=== PATIENT | female | born 1965 | race Caucasian/White ===

== ENCOUNTER 2020-06-14 14:53 | Outpatient (REF) | payer BC, SELFPAY ==
--- NOTE | 2020-06-14 14:58 | MM_ITS ---
EXAMINATION: MM SCREENING DIGITAL BREAST TOMOSYNTHESIS, BILATERAL CLINICAL INFORMATION: Screening. Asymptomatic. The lifetime risk of breast cancer based on the Tyrer-Cuzick Model is 7%. COMPARISON: Mammography: 03/30/2019, 03/19/2018, 02/26/2017 TECHNIQUE: Digital breast tomosynthesis is performed in both the craniocaudal and mediolateral oblique views along with computer-aided detection (CAD). Synthesized 2D images are generated from the tomosynthesis. FINDINGS: There are scattered areas of fibroglandular density (ACR BI-RADS breast composition Category b). There are no significant masses, abnormal calcifications, or other abnormalities. There are 2 small dermal lesions overlying the left axilla right MLO view with punctate calcification versus artifact from deodorant or other topical ointment/powder. MM/MM tomosynthesis screening BI IMPRESSION: No mammographic evidence of malignancy. ASSESSMENT: BI-RADS 2: Benign RECOMMENDATION: Routine annual mammography screening. This patient's information was entered into a reminder system with a target due date for their next mammogram.
== END 2020-06-14 14:54 | disposition home or self-care (01) ==
LOC: HO.MAMMO 14:53
PROVIDERS: PCP Internal Medicine; Visit Provider Internal Medicine
DX: Z12.31 Encounter for screening mammogram for malignant neoplasm of breast (principal)
CPT/HCPCS: 77063; 77067

== ENCOUNTER 2021-06-27 09:49 | Outpatient (REF) | payer OTHER, SELFPAY ==
--- NOTE | ~2021-06-27 | MM_ITS ---
EXAMINATION: MM SCREENING DIGITAL BREAST TOMOSYNTHESIS, BILATERAL CLINICAL INFORMATION: Screening. Asymptomatic. The lifetime risk of breast cancer based on the Tyrer-Cuzick Model is 5%. COMPARISON: Mammography: June 14, 2020 and studies dating back to January 02, 2014 TECHNIQUE: Digital breast tomosynthesis is performed in both the craniocaudal and mediolateral oblique views along with computer-aided detection (CAD). Synthesized 2D images are generated from the tomosynthesis. FINDINGS: There are scattered areas of fibroglandular density (ACR BI-RADS breast composition Category b). There are no significant masses, abnormal calcifications, or other abnormalities. MM/MM tomosynthesis screening BI IMPRESSION: There are no significant changes from prior study. ASSESSMENT: BI-RADS 1: Negative RECOMMENDATION: Routine annual mammography screening. This patient's information was entered into a reminder system with a target due date for their next mammogram.
== END 2021-06-27 09:50 | disposition home or self-care (01) ==
LOC: HO.MAMMO 09:49
PROVIDERS: Visit Provider Internal Medicine
DX: Z12.31 Encounter for screening mammogram for malignant neoplasm of breast (principal)
CPT/HCPCS: 77063; 77067

== ENCOUNTER 2022-07-01 08:14 | Outpatient (REF) | payer OTHER, SELFPAY ==
--- NOTE | ~2022-07-01 | MM_ITS ---
EXAMINATION: MM SCREENING DIGITAL BREAST TOMOSYNTHESIS, BILATERAL CLINICAL INFORMATION: Screening. Asymptomatic. The lifetime risk of breast cancer based on the Tyrer-Cuzick Model is 5%. COMPARISON: Mammography: 06/27/2021, 06/14/2020, 03/30/2019; left breast ultrasound 04/04/2019 TECHNIQUE: Digital breast tomosynthesis is performed in both the craniocaudal and mediolateral oblique views along with computer-aided detection (CAD). Synthesized 2D images are generated from the tomosynthesis. FINDINGS: There are scattered areas of fibroglandular density (ACR BI-RADS breast composition Category b). There are no significant masses, abnormal calcifications, or other abnormalities. Parenchymal pattern is similar to prior studies. There is no developing density or architectural abnormality. The axilla and skin contours are unremarkable. No significant changes. MM/MM tomosynthesis screening BI IMPRESSION: No mammographic evidence of malignancy. ASSESSMENT: BI-RADS 1: Negative RECOMMENDATION: Routine annual mammography screening. This patient's information was entered into a reminder system with a target due date for their next mammogram.
== END 2022-07-01 08:15 | disposition home or self-care (01) ==
LOC: HO.MAMMO 08:14
PROVIDERS: PCP Internal Medicine; Visit Provider Internal Medicine
DX: Z12.31 Encounter for screening mammogram for malignant neoplasm of breast (principal)
CPT/HCPCS: 77063; 77067

== ENCOUNTER 2023-01-21 09:13 | Outpatient (AMB) | payer OTHER, SELFPAY ==
--- NOTE | 2023-01-21 09:20 | MHC.OFFVIS ---
Intake Vital Signs 01/21/23 09:22 Height 5 ft 7 in Weight 134 lb BMI 21.0 BP 98/60 Intake Visit Reasons: new patient ? prolapse Boiler Room Operator Required: No Information Interpreted: non-clinical & clinical Associate Store Leader: Associate Store Leader Present (Fatimah BERNSTEIN) Accompanied by: Self / Same As Patient Allergies No Known Allergies [No Known Allergies*] Allergy (Unverified 01/21/23 09:23) Post menopausal: Yes HPI HPI Comments History of Present Illness Details Presenting complaining of a bulge per vagina no associated urinary incontinence . PFSH Medical History Multiple sclerosis Surgical History History of total vaginal hysterectomy (TVH) Social History Household Members: None Housing: House Alcohol intake: never Patient Tobacco Use Status: Former Tobacco user Current occupational status: employed Sexually active: No Sexual orientation: Straight/Heterosexual Gender identity: Female Review of Systems Const All systems reviewed & are unremarkable except as noted in HPI and below Card Reports as per HPI and Reports no additional complaints Resp Reports as per HPI and Reports no additional complaints GI Reports as per HPI and Reports no additional complaints Reports as per HPI Physical Exam Vital Signs: Last Vital Signs BP 98/60 01/21/23 09:22 BMI result Body Mass Index 21.0 Const General: cooperative, healthy appearing and comfortable General: Yes other (Moderate to severe cystocele central and bilateral paravaginal defects) External Female Exam: No lesion Speculum Exam - Vagina: normal appearance of the vagina and other (Moderate to severe rectocele) Speculum Exam - Cervix: Cervix absent Bimanual exam- vagina & uterus: uterus absent Bimanual Exam- Adnexa, other: Other (No masses detected) Assessment & Plan Assessment & Plan (1) Cystocele with rectocele: Code(s): N81.10 - Cystocele, unspecified; N81.6 - Rectocele Plan: Discussed with the patient the finding on physical exam showing moderate to severe cystocele and rectocele, options of treatment including pessary is or surgical management. All pros and cons, risks and benefits of each were discussed with the patient, the patient decided to proceed with surgical management. Will refer to Urogynecology at [facility] Orders: Referrals Urogynecology Referral N81.10 - Cystocele, unspecified, N81.6 - Rectocele Coding Level of Care Code New Pt Level 3 (91623) Diagnoses Cystocele with rectocele N81.10; N81.6
[2023-01-21 09:22] VITALS: BP 98/60; BMI 21.0
== END 2023-01-21 11:05 | disposition home or self-care (01) ==
LOC: HO.HWS 09:13
PROVIDERS: PCP Internal Medicine; Visit Provider Obstetrics & Gynecology
DX: N81.10 Cystocele, unspecified (principal); N81.6 Rectocele
CPT/HCPCS: 99203

== ENCOUNTER → 2023-01-21 09:13 | Outpatient (BNVA) | payer OTHER, SELFPAY | PROVIDERS: PCP Internal Medicine; Visit Provider Obstetrics & Gynecology | DX: N81.10 Cystocele, unspecified (principal); N81.6 Rectocele | CPT/HCPCS: 99202 ==

== ENCOUNTER 2023-07-07 08:15 | Outpatient (REF) | payer OTHER, SELFPAY | END 2023-07-07 08:16 | disposition home or self-care (01) | LOC: HO.MAMMO 08:15 | PROVIDERS: PCP Internal Medicine; Visit Provider Internal Medicine | DX: Z12.31 Encounter for screening mammogram for malignant neoplasm of breast (principal) | CPT/HCPCS: 77063; 77067 ==

== ENCOUNTER → 2023-07-07 08:30 | Outpatient (BNV) | payer OTHER, SELFPAY | PROVIDERS: PCP Internal Medicine; Visit Provider Radiology Diagnostic Radiology | DX: Z12.31 Encounter for screening mammogram for malignant neoplasm of breast (principal) | CPT/HCPCS: 77063; 77067 ==

== ENCOUNTER 2024-07-11 14:02 | Outpatient (REF) | payer OTHER, SELFPAY ==
--- OUTSIDE RECORDS SUMMARY | 2024-07-11 18:32 | XMS_ITS | Encounter Summary ---
Author Organization [facility] [place] [address] Care Team Providers Care Parks And Recreation Manager Name Role Phone Maria Isabel Verdin MD Primary Care Provider [phone] Encounter Details Date Type Department Care Team (Latest Contact Info) Description 06/22/2024 9:15 AM EST Clinical Support Adult [address] [phone] B12 deficiency (Primary Dx) Social History Tobacco Use Types Packs/Day Years Used Date Smoking Tobacco: Former Smokeless Tobacco: Never Alcohol Use Standard Drinks/Week Comments No 0 (1 standard drink = 0.6 oz pur e alcohol) Housing Instability Answer Date Recorde d Are you worried that in the next 2 months you may not have stable housing? No 05/05/2024 Food Access & Nutrition Answer Date Rec orded Do you have access to a vari ety of food including fruits and vegetables? Yes 05/05/2024 Health Literacy Answer Date Recorded How often do you need to hav e someone help you when you read instructions, pamphlets, or other written material from your doctor or pharmacy? Never 05/05/2024 Caregiver: How often do you need to have someone help you when you read instructions, pamphlets, or other written material from your doctor or pharmacy? Not on file 05/05/2024 Financial Risk Answer Date Recorded How hard is it for you to pa y for the very basics like food, housing, medical care, and air conditioning / heating? Not asked 05/05/2024 Transportation Answer Date Recorded Has the lack of transportati on kept you from meetings, work, or from getting things needed for daily living? No Has the lack of transportati on kept you from medical appointments or from getting medications? No 05/05/2024 Social Isolation Answer Date Recorded How often do you feel lonely or isolated from th ose around you? Never 05/05/2024 Food Risk Answer Date Recorded Within the past 12 months we worried whether our food would run out before we got money to buy more. Never true 05/05/2024 Within the past 12 months th e food we bought just didn't last and we didn't have money to get more. Never true 05/05/2024 Dependent Care Answer Date Recorded Do you need help finding or paying for care for your loved ones. For example, childcare director or elderly care for an older adult? No 05/05/2024 Education Answer Date Recorded Do you think completing more education or training, like finishing a GED, going to college, or learning a trade, would be helpful for you? No 05/05/2024 Employment and Income Answer Date Recor ded During the last four weeks, have you been actively looking for work? No 05/05/2024 Living Situation Answer Date Recorded What is your living situation? 1 07/05/2023 Sex and Gender Information Value Date Recorded Sex Assigned at Not on file Gender Identity Not on file Sexual Orientation Not on file Job Start Date Occupation Industry Not on file Not on file Not on file documented as of this encounter Progress Notes * Lorenza Hwang MA - 06/22/2024 9:15 AM EST B12 injection given left deltoid. See medication/immunization tab. Patient to remain 20 minutes. documented in this encounter Plan of Treatment Upcoming Encounters Date Type Department Care Team (Late st Contact Info) Description 07/20/2024 9:00 AM EST Clinical Support Adult Medicine [address] [phone] 07/20/2024 11:00 AM EST Treatment Outpatient Rehabilitation - [address], [place] [phone] Joel Baca, PT 08/17/2024 9:00 AM EST Clinical Support [address] [phone] 09/14/2024 9:00 AM EDT Clinical Support [address] [phone] 10/12/2024 9:00 AM EDT Clinical Support [address] [phone] 11/09/2024 9:00 AM EDT Clinical Support [address] [phone] 11/17/2024 9:00 AM EDT Office Visit [address] [phone] Maria Isabel Verdin MD [address] [place] [address] 12/07/2024 9:00 AM EDT Clinical Support [address] [phone] documented as of this encounter Visit Diagnoses Diagnosis B12 deficiency- Primary documented in this encounter Administered Medications Active Administered Medications - up to 3 most recent administrations Medication Order MAR Action Action Date Dose Rate Site cyanocobalamin (VITAMIN B-12) injection 1,000 mcg 1,000 mcg, intramuscular, Every 30 days, First dose on Thu05/06/24 at 1215, For 6 doses Given 06/22/2024 9:04 AM EST 1,000 mcg Left Deltoid Given 05/11/2024 8:56 AM EST 1,000 mcg Le ft Deltoid documented in this encounter Additional Health Concerns Assessment Noted Time PHQ-9 Depression Total Score: 0 05/05/20 9:53 AM EST documented as of this encounter Care Teams Parks And Recreation Manager Relationship Specialty Start Date End Date Maria Isabel Verdin MD [address] [place] [address] PCP - General Internal Medicine 05/02/21 documented as of this encounter
--- OUTSIDE RECORDS SUMMARY | 2024-07-11 18:32 | XMS_ITS | Clinical Summary ---
Author Organization [facility] Address [address] [place] [address] Care Team Providers Care Customer Service Trainer Name Role Phone Maria Isabel Verdin MD Primary Care Provider [phone] Allergies No known active allergies Medications Medication Sig Dispensed Refills Start Date End Date Status folic acid (FOLVITE) tablet 1 mg Take 1 tablet (1,000 mcg total) by mouth daily. 3 03/13/2019 Active cyanocobalamin (VITAMIN B12) 1000 MCG/ML injection Inject 1 mL (1,000 mcg total) into the muscle. 0 08/10/2018 Active vitamin D3 (VITAMIN D3) 25 MCG (1000 UT) tablet Take 1 tablet (1,000 Units total) by mouth 3 (three) times a day. 0 Active LORazepam (ATIVAN) 0.5 MG tablet 1 po 1 hour prior to MRI; may repeat 1 at time of MRI if needed 10 tablet 0 07/29/2023 Active Dimethyl Fumarate (Tecfidera) 240 MG CPDRIndications:Mult iple sclerosis (HCC) Take 1 capsule by mouth 2 (two) times a day. 180 capsule 3 08/19/2023 Active Active Problems Problem Noted Date Diagnosed Date B12 deficiency 10/26/2019 Family History Medical History Relation Name Comments Multiple sclerosis Daughter Stroke Father Diabetes Mother Relation Name Status Comments Daughter Alive Father Mother Social History Tobacco Use Types Packs/Day Years Used Date Smoking Tobacco: Former Smokeless Tobacco: Never Tobacco Cessation:Counseling Given: Not Answered Alcohol Use Standard Drinks/Week Comments Yes 0 (1 standard drink = 0.6 oz pur e alcohol) Sex and Gender Information Value Date Recorded Sex Assigned at Female 05/23/2021 9:39 AM EST Gender Identity Not on file Sexual Orientation Not on file Job Start Date Occupation Industry Not on file Not on file Not on file Last Filed Vital Signs Vital Sign Reading Time Taken Comments Blood Pressure 101/58 12/31/2023 8:43 AM EDT Pulse 78 12/31/2023 8:43 AM EDT Temperature 35.9 ??C (96.6 ??F) 08/20/2023 8:37 AM ES T Respiratory Rate 16 08/19/2022 9:27 AM EST Oxygen Saturation 98% 12/31/2023 8:43 AM EDT Inhaled Oxygen Concentration - - Weight 58.9 kg (129 lb 14.4 oz) 12/31/2023 8:43 AM EDT Height 170.2 cm (5' 7 ) 08/20/2023 8:37 AM EST Body Mass Index 20.35 08/20/2023 8:37 AM EST Plan of Treatment Health Maintenance Due Date Last Done Comments Hepatitis C Screening 1965 COVID-19 Vaccine (#1) 1965 Depression Screening 1975 Preventative Health Evaluation 1981 Cervical Cancer Screening (Pap Smear) 1984 Colon Cancer Screening (Colonoscopy) 2008 Breast Cancer Screening (Mammogram) 2013 Influenza Vaccine (#1) 2024 2, 04/01/2021, 02/22/2021, Additional history exists DTap / Tdap / Td (3 - Td or Tdap) 08/16/2030 08/16/2020, 03/29/2012 RSV Adult > 60+ Yrs or (1 - 1-dose 75+ series) 2038 Pneumococcal Vaccine Aged Out 11/20/2016, 07/31/19 16 No longer eligible based on patient's age to complete this topic Shingrix-Zoster Vaccine Completed 05/14/20 19, 03/17/2019, 01/27/2018, Additional history exists Hepatitis B Vaccines Aged Out No long er eligible based on patient's age to complete this topic RSV Ped < 20 months Aged Out No longe r eligible based on patient's age to complete this topic Care Teams Customer Service Trainer Relationship Specialty Start Date End Date Maria Isabel Verdin MD PCP - General Internal Medicine 02/18/22
--- OUTSIDE RECORDS SUMMARY | 2024-07-11 18:32 | XMS_ITS | Encounter Summary ---
Author Organization [facility] Address [address] [place] [address] Care Team Providers Care Strain Technician Name Role Phone Maria Isabel Verdin MD Primary Care Provider Reason for Visit * Consultation (Routine) - Authorized Specialty Diagnoses / Procedures Referred By Deana solis Referred To Contact Physical Therapy Diagnoses Weakness of both lower extremities Taylor De León MD [address] [place] [address] Referral ID Status Reason Start Date Expiration Date Visits Requested Visits Authorized [id number] Authorized Specialty Services Required 06/01/2025 21 21 Encounter Details Date Type Department Care Team (Latest Contact Info) Description 06/30/2024 2:30 PM EST Evaluation Outpatient Rehabilitation - [address] [phone] Joel Baca, JOSÉ MANUEL Weakness of both lower extremities (Primary Dx) Social History Tobacco Use Types [...] for your loved ones. For example, childcare teacher or elderly care for an older adult? [...] as of this encounter Progress Notes * Joel Baca, PT - 06/30/2024 2:30 PM EST Images from the original note were not included. [facility] - Outpatient PHYSICAL THERAPY EVALUATION Date: 06/30/2024 Visit Number: 1 Patient Name: Rosa Thayer : 1965 Age: 59 y.o. Gender: female Diagnosis: ICD-10-CM ICD-9-CM 1. Weakness of both lower extremities R29.898 729.89 Ambulatory referral to Physical Therapy and Athletic Training Date of Onset/Surgery: 05/30/2024 Referring Provider: Taylor De León* Insurance: Payor: [employer] / Plan: [employer]ICA[employer] / Product Type: *No Product type* / Patient identified by: Joel Baca PT Language: Speaks and understands Persian as preferred language with no sas clinical programmer required Chart Reviewed: Yes Medications: Current Outpatient Medications on File Prior to Visit Medication Sig Dispense Refill cholecalciferol (VITAMIN D-3) 25 mcg (1,000 unit) tablet Take 1 tablet (1,000 Units total) by mouth3 (three) times a day. dimethyl fumarate 240 mg capsule,delayed release(DR/EC) Take 1 Tab by mouth 2 times daily. folic acid (FOLVITE) 1 mg tablet Take 1 tablet (1,000 mcg total) by mouth daily. LORazepam (ATIVAN) 0.5 mg tablet 1 po 1 hour prior to MRI; may repeat 1 at time of MRI if needed Current Facility-Administered Medications on File Prior to Visit Medication Dose Route Frequency Provider Last Rate Last Admin cyanocobalamin (VITAMIN B-12) injection 1,000 mcg 1,000 mcg intramuscular q30 days LEANNE Anaya1,000 mcg at 06/22/24 0904 Advised Patient to contact MD with any questions regarding medications and importance of managing medication information. has a past medical history of Anxiety (06/03/2018), Depression (06/03/2018), H/O uterine prolapse (06/03/2018), Mild cognitive impairment (06/03/2018), MS (multiple sclerosis) ([facility]) (06/03/2018),Pernicious anemia (06/03/2018), Tubular adenoma of colon (06/03/2018), and Vitamin D deficiency (06/03/2018). has a past surgical history that includes Colonoscopy (2014); Hysterectomy (09/23/2006); and Colonoscopy (01/12/2020). has No Known Allergies. Precautions: N/A Previous Medical Care/Therapy: Pt is followed at local [facility] as PMH includes MS (Dx'd in 1987). SUBJECTIVE History of Present Illness/Subjective Report: Pt reports falling in her kitchen at 3 o'clock in themorning on 05/30/2024. Pt stated on floor until help came out to get her up off floor. Pt reports no other episodes of collapse but was dx'd w/ COVID 19 three days later. Pt has not had any falls since that date. Pt was seen by PCP and given PT referral for PT evaluation. Home Environment: Resides w/ adult son and son's girlfriend, 2 yo and 1 yo grandchildren. 1 level ranch, W/D are in basement and 1/2 of basement is finished. 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 R hand dominant. Involves cahiering, stocking shelves etc. Prior Level of Function: Same as it is now. Current Functional Limitations: Reported by Patient No limitations at this time. Pt concerned that she requires use of UE's to get off floor. Is the patient at Risk for Falls: No Pain: Pain location(s) No pain. OBJECTIVE General Observations/Posture/Comments: Grossly WNL's. General/Functional Assessments/Extremity Assessments: Pt was able to transfer from floor to stand transfers w/ occ VC's. B LE strength is grossly WNL's except L hip abd=4-/5, R=4/5. L hip ER=4/5, R=4+/5. B PF's=4/5 (L HRT=5 reps, R=7 reps). Gait is WNL's. Transfers are WNL's. Pt has moderately tight quads and hamstrings. 30 Second Chair Stand Test= 10 reps (Norm is 12 or better) TU seconds. 4 Stage Balance Test: All 10 seconds or better. Pt instructed in supine HS stretch, prone quad stretch and heel raises at kitchen sink to include demo and trial. Written instructions issued. Answered pt's questions to patient's satisfaction. ASSESSMENT: IE completed this visit. Rehabilitation Potential: Rehab Potential: Condition Has Potential to Improve Rosa Thayer is a 59 y.o. female presenting for outpatient physical therapy evaluation with complaints of B LE weakness and no HEP at this time. A brief course of skilled Physical therapy is medically necessary to reach PT goals and LE flexibility and strength. Learning Needs: Were Patient Learning needs assessed: Yes Learning Preferences: Explanation and Printed Materials Barriers to Learning: No Barriers to Learning Patient Education: [x] Discussed, with patient and/or caregiver, the recommended plan of care/goals, the importance oftherapy and appointment compliance in order to achieve goals in a timely manner. GOALS Goals Addressed This Visit's Progress STG's 4 visits (pt-stated) Pt will be I and compliant w/ functional LE strengthening program. Pt will demonstrate 14 reps or better on 30 Second Chair Stand Test. PLAN POC Development/Review: Initial Evaluation; Participants: Patient Skilled Therapy Plan Required: YES- Reasons for Rehab and Medical Necessity -- Additional Comments:To instruct pt is a HEP of LE strengthening and stretching. Planned Therapy Interventions: Neuromuscular Re-education, Therapeutic Activity, and Therapeutic Exercise Skilled PT recommended at a freq of 1x/week for up to 4 visits. Recommended Consults: none Equipment Recommended: none; Equipment Provided: none BILLING TOTAL TREATMENT TIME: 60 Minutes Evaluation Medium Complexity Justification ::: A history of present problem with 1 - 2 personal factors and/or co-morbidities that impact the plan of care and An examination of body systems using standardized tests and measures in addressing a total of 3 or more elements from any of the following body structures and functions, activity limitations, and/or participation restrictions Documentation completed by Joel Baca, [facility] [address] [address] Dept: [phone] Dept PATIENT NAME: Rosa Thayer : 1965 Certification: This is to certify that the above named patient, who is under my care, requires skilled Therapy services as described in the above treatment plan. I further certify that the services outlined in this plan are skilled and medically necessary. I have reviewed this plan for rehabilitation services, and I recommend that these services continue to meet the above stated goals and plan. SIGNATURE: DATE Taylor De León* Referring provider documented in this encounter Plan of Treatment Upcoming Encounters Date Type Department Care Team (Late st Contact Info) Description 07/20/2024 9:00 AM EST Clinical Support [address] [phone] 07/20/2024 11:00 AM EST Treatment Outpatient [address] [phone] Joel Baca, PT 08/17/2024 9:00 AM EST Clinical Support [address] [phone] 09/14/2024 9:00 AM EDT Clinical Support [address] [phone] 10/12/2024 9:00 AM EDT Clinical Support [address] [phone] 11/09/2024 9:00 AM EDT Clinical Support [address] [phone] 11/17/2024 9:00 AM EDT Office Visit [address] [phone] Maria Isabel Verdin MD [address] [place] [address] 12/07/2024 9:00 AM EDT Clinical Support [address] [phone] documented as of this encounter Goals Goal Patient Goal Type Associated Problems Recent Progress Patient-Stated? Author STG's 4 visits General Yes Joel Baca, PT Note: Pt will be I and compliant w/ functional LE strengthening program. Pt will demonstrate 14 reps or better on 30 Second Chair Stand Test. documented as of this encounter Visit Diagnoses Diagnosis Weakness of both lower extremities- Primary documented in this encounter Orders Outpatient Referral Count Last Ordered Date Fir st Ordered Date AMB REFERRAL TO PHYSICAL [facility] AND ATHLETIC TRAINING 1 06/30/2024 documented in this encounter Additional Health Concerns Assessment Noted Time PHQ-9 Depression Total Score: 0 05/05/20 24 9:53 AM EST documented as of this encounter Care Teams Strain Technician Relationship Specialty Start Date End Date Maria Isabel Verdin MD [address] [place] [address] PCP - General Internal Medicine 05/02/21 documented as of this encounter
--- OUTSIDE RECORDS SUMMARY | 2024-07-11 18:32 | XMS_ITS | Encounter Summary ---
Author Organization [facility] Address [address] [place] [address] Care Team Providers Care Candy Separator Enrobing Name Role Phone Maria Isabel Verdin MD Primary Care Provider [phone] Encounter Details Date Type Department Care Team (Latest Contact Info) Description 06/30/2024 Plan of Care Documentation [address] [address] Social History Tobacco Use Types Packs/Day Years [...] care for your loved ones. For example, child care associate teacher or elderly care for an older [...] Notes * Joel Baca, PT - 06/30/2024 3:52 PM EST Images from the original note were not included. [facility] - Outpatient PHYSICAL THERAPY EVALUATION Date: 06/30/2024 Visit Number: 1 Patient Name: Rosa Thayer : 1965 Age: 59 y.o. Gender: female Diagnosis: ICD-10-CM ICD-9-CM 1. Weakness of both lower extremities R29.898 729.89 Ambulatory referral to Physical Therapy and Athletic Training Date of Onset/Surgery: 05/30/2024 Referring Provider: Taylor De León* Insurance: Payor: [employer] PLAN / Plan: [employer] MEDICAID / Product Type: *No Product type* / Patient identified by: Joel Baca PT Language: Speaks and understands Togolese as preferred language with no clinic receptionist required Chart Reviewed: Yes Medications: Current Outpatient [...] 1,000 mcg 1,000 mcg intramuscular q30 days Kandy Cook PA1,000 mcg at 06/22/24 0904 Advised Patient to contact MD with any questions regarding medications and importance of managing medication information. has a past medical history of Anxiety (06/03/2018), Depression (06/03/2018), H/O uterine prolapse (06/03/2018), Mild cognitive impairment (06/03/2018), MS (multiple sclerosis) ([facility]) (06/03/2018),Pernicious anemia (06/03/2018), Tubular adenoma of colon [...] basement and 1/2 of basement is finished. 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 R hand dominant. Involves [...] and/or participation restrictions Documentation completed by Joel Baca PT OUTPATIENT [address] [address] Dept: [phone] Dept PATIENT NAME: Rosa Thayer : 1965 [...] 07/20/2024 9:00 AM EST Clinical Support Adult [address] [phone] 07/20/2024 11:00 AM EST Treatment Outpatient Rehabilitation [address] [phone] Joel Baca, JOSÉ MANUEL 08/17/2024 9:00 AM EST Clinical Support [address] [phone] 09/14/2024 9:00 AM EDT Clinical Support [address] [phone] 10/12/2024 9:00 AM EDT Clinical Support [address] [phone] 11/09/2024 9:00 AM EDT Clinical Support [address] [phone] 11/17/2024 9:00 AM EDT Office Visit [address] [phone] Maria Isabel Verdin MD [address] [place] [address] 12/07/2024 9:00 AM EDT Clinical Support [address] [phone] documented as of this encounter Goals Goal Patient Goal Type Associated Problems Recent Progress Patient-Stated? Author STG's 4 visits General Yes Joel Baca, PT Note: Pt will be I and compliant w/ functional LE strengthening program. Pt will demonstrate 14 reps or better on 30 Second Chair Stand Test. documented as of this encounter Visit Diagnoses Not on filedocumented in this encounter Additional Health Concerns Assessment Noted Time PHQ-9 Depression Total Score: 0 05/05/20 24 9:53 AM EST documented as of this encounter Care Teams Candy Separator Enrobing Relationship Specialty Start Date End Date Maria Isabel Verdin MD [address] [place] [address] PCP - General Internal Medicine 05/02/21 documented as of this encounter
--- OUTSIDE RECORDS SUMMARY | 2024-07-11 18:32 | XMS_ITS | Encounter Summary ---
Author Organization [facility] Address [address] [place] [address] Care Team Providers Care Grapple Skidder Operator Name Role Phone Maria Isabel Verdin MD Primary Care Provider [phone] Reason for Visit * Consultation (Routine) - Authorized Specialty Diagnoses / Procedures Referred By Deana solis Referred To Contact Physical Therapy Diagnoses Weakness of both lower extremities Taylor De León MD [address] [place] [address] Referral ID Status Reason Start Date Expiration Date Visits Requested Visits Authorized [id number] Authorized Specialty Services Required 06/01/2025 21 21 Encounter Details Date Type Department Care Team (Late st Contact Info) Description 07/06/2024 9:30 AM EST Treatment Outpatient Rehabilitation [address] [phone] Joel Baca PT Weakness of both lower extremities (Primary Dx) [...] care for your loved ones. For example, childbirth and infant care teacher or elderly care for an older [...] Progress Notes * Joel Baca, PT - 07/06/2024 9:30 AM EST [facility] - Outpatient PHYSICAL THERAPY DAILY TREATMENT NOTE - OP Date: 07/06/2024 Visit Number: 2 Patient Name: Rosa Thayer : 1965 Age: 59 y.o. Gender: female Diagnosis: ICD-10-CM ICD-9-CM 1. Weakness of both lower extremities R29.898 729.89 Date of Onset/Surgery: 05/30/2024 Referring Provider: Taylor De León* Insurance: Payor: [facility] Atieva PLAN / Plan: WE[employer] MEDICAID / Product Type: *No Product type* / Patient Identified by: Joel Baca PT Language: Kyrgyz Medications: Current Outpatient Medications on File Prior [...] days LEANNE Anaya1,000 mcg at 06/22/24 0904 Allergies: has No Known Allergies. Precautions: N/A Fall risk: No Patient/Caregiver Goals: SUBJECTIVE Subjective Report: Pt felt a pull in her ribs when doing prone quad stretch w/ dog leash so modified via pulling pant leg and this felt better. Chart Reviewed: Yes Pain OBJECTIVE TREATMENT INTERVENTION: Modalities: None performed Procedures: HEP review via return demonstration w/ pt's questions answered to pt's satisfaction. Discussed use of recumbent cycle as pt has one at home. Discussed starting point and how to progress gradually as well as use of resistance w/ RPE of 6-7/10 on VAS. Pt instructed in supine HS stretch w/ green strap as another alternative to previous stretches to include demo and trial. Also instructed in banded air squats Issued PTB for home use. Written instructions issued. ASSESSMENT/Response to Treatment Good Pt was able to return demonstration of new HEP after instruction. Pt would benefit from addition of banded side stepping and stool scoots next visit. Patient Education: Education provided: Yes Education Provided To: Patient utilizing Explanation, Demonstration, and Printed Material mode(s) of education Response to Education: Verbal Understanding and Demonstrated Skills PLAN POC Development/Review: No Change in the Plan of Care; Participants: Patient Total Treatment Time: 30 Modalities: Therapeutic procedures: Documentation completed by Joel Baca PT documented in this encounter Plan of Treatment Upcoming Encounters Date Type Department Care Team (Late st Contact Info) Description 07/20/2024 9:00 AM EST Clinical Support [address] [phone] 07/20/2024 11:00 AM EST Treatment Outpatient Rehabilitation [address] [phone] Joel Baca, PT 08/17/2024 9:00 AM EST Clinical Support [address] [phone] 09/14/2024 9:00 AM EDT Clinical Support [address] [phone] 10/12/2024 9:00 AM EDT Clinical Support [address] [phone] 11/09/2024 9:00 AM EDT Clinical Support [address] [phone] 11/17/2024 9:00 AM EDT Office Visit [address] [phone] Maria Isabel Verdin MD [address] [place] [address] 12/07/2024 9:00 AM EDT Clinical Support Adult Medicine [facility] [address] [place] [phone] documented as of this encounter Goals Goal [...] lower extremities- Primary documented in this encounter Additional Health Concerns Assessment Noted Time PHQ-9 Depression Total Score: 0 05/05/20 24 9:53 AM EST documented as of this encounter Care Teams Grapple Skidder Operator Relationship Specialty Start Date End Date Maria Isabel Verdin MD [address] [place] [address] PCP - General Internal Medicine 05/02/21 documented as of this encounter
--- OUTSIDE RECORDS SUMMARY | 2024-07-11 18:33 | XMS_ITS | Clinical Summary ---
Author Organization [facility] Address [address] [place] [address] Phone Care Team Providers Care Research Consultant Name Role Phone Maria Isabel Verdin MD Primary Care Provider [phone] Allergies No known active allergies Medications Medication Sig Dispensed Refills Start Date End Date Status dimethyl fumarate 240 mg capsule,delayed release(DR/EC) Take 1 Tab by mouth 2 times daily. 11/25/2019 Active folic acid (FOLVITE) 1 mg tablet Take 1 tablet (1,000 mcg total) by mouth daily. 03/13/2019 Active LORazepam (ATIVAN) 0.5 mg tablet 1 po 1 hour prior to MRI; may repeat 1 at time of MRI if needed 07/29/2023 Active cholecalciferol (VITAMIN D-3) 25 mcg (1,000 unit) tablet Take 1 tablet (1,000 Units total) by mouth 3 (three) times a day. Active Hospital, Clinic, or Other Facility Administered Medication Ordered Dose Route Frequency Start Date End Date Status cyanocobalamin (VITAMIN B-12) injection 1,000 mcgIndications:B12 deficiency,Pernicious anemia 1000 mcg IM Every 30 days 05/06/2024 11/02/2024 Active Active Problems Problem Noted Date Diagnosed Date B12 deficiency 10/26/2019 Encounters Date Type Department Care Team Description 07/06/2024 9:30 AM EST Treatment Outpatient Rehabilitation [address] [phone] Joel Baca, PT Weakness of both lower extremities (Primary Dx) 06/30/2024 2:30 PM EST Evaluation Outpatient Rehabilitation [address] [phone] Joel Baca, PT Weakness of both lower extremities (Primary Dx) 06/30/2024 Plan of Care Documentation [facility] Outpatient Rehabilitation [facility] [address] [facility] [address] [place] [address] 06/22/2024 9:15 AM EST Clinical Support [address] [phone] B12 deficiency (Primary Dx) 05/31/2024 2:30 PM EST Office Visit [address] [phone] Chad garg, Taylor Dong MD Weakness (Primary Dx) 05/30/2024 Nurse Triage [address] [phone] Maria Isabel Verdin MD Fall 05/11/2024 9:15 AM EST Clinical Support [address] [phone] B12 deficiency (Primary Dx) 05/06/[address] [phone] Maria Isabel Verdin MD 04/22/2024 8:30 AM EST Office Visit [facility] - [address] [place] [address] Samanta Cotto PA MS (multiple sclerosis) (CMS/[facility]) (Primary Dx) from Last 3 Months Surgical History Surgery Date Site/Laterality Comments COLONOSCOPY 2014 PROCEDURE: HISTORICAL COLONOSCOPY; COMMENT: 5 year repeat HYSTERECTOMY 09/23/2006 PROCEDURE: HISTORICAL HYSTERECTOMY; COMMENT: partial. due to prolapsed uterus COLONOSCOPY 01/12/2020 PROCEDURE: HISTORICAL COLONOSCOPY; COMMENT: repeat 2024 Medical History Medical History Date Comments Anxiety 06/03/2018 DX:Anxiety; COMM ENT: Panic attacks Depression 06/03/2018 DX:Depression H/O uterine prolapse 06/03/2018 DX:H/O uter ine prolapse; COMMENT: Partial hysterectomy 09/2006 Mild cognitive impairment 06/03/2018 DX:Mil d cognitive impairment; COMMENT: Neuropsych testing done 01/2016 MS (multiple sclerosis) ([facility]/H[facility]) 06/03/2018 DX:MS (multiple sclerosis) ([facility]); COMMENT: Dr Conn Vitamin D deficiency 06/03/2018 DX:Vitamin D deficiency Tubular adenoma of colon 06/03/2018 DX:Tubu lar adenoma of colon; COMMENT: 2014. Repeat in 5 years Pernicious anemia 06/03/2018 DX:Pernicious anemia Family History Medical History Relation Name Comments Multiple sclerosis Daughter Coronary artery disease Father Stro ke/ICH Diabetes Mother Stoke Other: Neuropathy Sister Relation Name Status Comments Daughter Alive Father Mother Sister Social History Tobacco Use Types Packs/Day Years Used Date Smoking Tobacco: Former Smokeless Tobacco: Never Tobacco Cessation:Counseling Given: Not Answered Alcohol Use Standard Drinks/Week Comments No 0 [...] file Not on file Not on file Obstetrics History Last Filed Vital Signs Vital Sign Reading Time Taken Comments Blood Pressure 110/72 05/31/2024 2:37 PM EST Pulse 94 05/31/2024 2:37 PM EST Temperature 36.4 ??C (97.5 ??F) 05/31/2024 2:37 PM ES T Respiratory Rate 14 05/31/2024 2:37 PM EST Oxygen Saturation 98% 04/22/2024 8:57 AM EST Inhaled Oxygen Concentration - - Weight 59.5 kg (131 lb 3.2 oz) 05/31/2024 2:37 P M EST Height 167.6 cm (5' 6 ) 04/22/2024 8:57 AM EST Body Mass Index 21.18 04/22/2024 8:57 AM EST Plan of Treatment Upcoming Encounters Date Type Department Care Team (Late st Contact Info) Description 07/20/2024 9:00 AM EST Clinical Support Adult Medicine [place] - [address] [phone] 07/20/2024 11:00 AM EST Treatment Outpatient Rehabilitation - [address] [phone] Joel Baca, PT 08/17/2024 9:00 AM EST Clinical Support [address] [phone] 09/14/2024 9:00 AM EDT Clinical Support [address] [phone] 10/12/2024 9:00 AM EDT Clinical Support [address] [phone] 11/09/2024 9:00 AM EDT Clinical Support [address] [phone] 11/17/2024 9:00 AM EDT Office Visit [address] [phone] Maria Isabel Verdin MD [address] [place] [address] 12/07/2024 9:00 AM EDT Clinical Support [address] [phone] Health Maintenance Due Date Last Done Comments Breast Cancer Screening 1965 Colorectal Cancer Screening: Colonoscopy 05/23/2022 HIV Screening 05/23/2022 Hepatitis C Screening 05/23/2022 Depression Screening 05/05/2025 05/05/2024 Social Influencers of Health Screening 05/05/2025 05/05/2024 Cholesterol Screening (Lipid Panel) 04/22/2029 04/22/2024, 11/12/2023 DTaP,Tdap,and Td Vaccines (3 - Td or Tdap) 08/16/2030 08/16/2020, 03/29/2012 Pneumococcal Vaccine: Pediatrics (0 to 5 Years) and At-Risk Patients (6 to 64 Years) Aged Out 11/20/2016, 07/31/2015 No longer eligibl e based on patient's age to complete this topic Zoster Vaccines Completed 05/14/2019, 08/2018, 01/27/2018, Additional history exists RSV Immunization Patients 60+ Years Old Completed 08/21/2023 COVID-19 Vaccine Completed 02/21/2024, , 06/07/2022, Additional history exists Influenza Vaccine Completed 02/21/2024, , 04/07/2022, Additional history exists HIB Vaccines Aged Out No longer eligi ble based on patient's age to complete this topic HPV Vaccines Aged Out No longer eligi ble based on patient's age to complete this topic Hepatitis A Vaccines Aged Out No long er eligible based on patient's age to complete this topic Hepatitis B Vaccines Aged Out No long er eligible based on patient's age to complete this topic IPV Vaccines Aged Out No longer eligi ble based on patient's age to complete this topic MMR Vaccines Aged Out No longer eligi ble based on patient's age to complete this topic Meningococcal ACWY Vaccine Aged Out N o longer eligible based on patient's age to complete this topic RSV Immunization Patients Under 20 months Aged Out No longer eligible based on patient's age to complete this topic Varicella Vaccines Aged Out No longer eligible based on patient's age to complete this topic Goals Goal Patient Goal Type Associated Problems Recent Progress Patient-Stated? Author STG's 4 visits General Yes Joel Baca, PT Note: Pt will be I and compliant w/ functional LE strengthening program. Pt will demonstrate 14 reps or better on 30 Second Chair Stand Test. Procedures Procedure Name Priority Date/Time Associated Diagnosis Comments BASIC METABOLIC PANEL Routine 05/31/2024 3:12 PM EST Weakness THYROID STIMULATING HORMONE WITH REFLEX TO FREE T4 AND FREE T3 Routine 05/31/2024 3:12 PM EST Weakness CBC WITH AUTO DIFFERENTIAL Routine 04/22/2024 9:03 AM EST MS (multiple sclerosis) (CMS/HCC) LIPID PANEL WITH REFLEX TO DIRECT LDL Routine 04/22/2024 9:03 AM EST Multiple sclerosis (CMS/HCC) VITAMIN B12 Routine 04/22/2024 9:03 AM EST MS (multiple sclerosis) (CMS/HCC) VITAMIN D 25 HYDROXY Routine 04/22/2024 9:03 AM EST MS (multiple sclerosis) (CMS/HCC) HEPATIC FUNCTION PANEL Routine 04/22/2024 9:03 AM EST MS (multiple sclerosis) (CMS/HCC) CBC AND DIFFERENTIAL Routine 04/22/2024 9:03 AM EST MS (multiple sclerosis) (CMS/HCC) from Last 3 Months Results * Thyroid stimulating hormone with reflex to free t4 and free t3 (05/31/2024 3:12 PM EST) [facility] TSH 3.83 0.40 - 4.00 mcIU/mL LAB CHEMISTRY METHOD 05/31/2024 6:21 PM [facility] Blood Venous blood specimen / Unknown Venipuncture / Unknown 05/31/2024 3:12 PM EST 05/31/2024 3:12 PM EST Taylor De León MD LAB BLOOD ORDERABLES [facility] [address] [place] [address], * (ABNORMAL) Basic metabolic panel (05/31/2024 3:12 PM EST) [facility] Sodium 135 133 - 145 mmol/L LAB CHEMISTRY METHOD 05/31/2024 6:10 PM EST [facility] Potassium 4.8 3.5 - 5.5 mmol/L LAB CHEMISTRY METHOD 05/31/2024 6:10 PM [facility] Chloride 99 96 - 110 mmol/L LAB CHEMISTRY METHOD 05/31/2024 6:10 PM [facility] CO2 33(H) 21 - 32 mmol/L LAB CHEMISTRY METHOD 05/31/2024 6:10 PM [facility] Anion Gap 3 3 - 11 LAB CHEMISTRY METHOD 05/31/2024 6:10 PM EST [facility] Glucose 79 70 - 100 mg/dL LAB CHEMISTRY METHOD 05/31/2024 6:10 PM [facility] BUN 10 5 - 25 mg/dL LAB CHEMISTRY METHOD 05/31/2024 6:10 PM [facility] Creatinine 0.66 0.50 - 1.10 mg/dL LAB CHEMISTRY METHOD 05/31/2024 6:10 PM [facility] eGFR 100 >=60 mL/min/1. 73m2 LAB CHEMISTRY METHOD 05/31/2024 6:10 PM [facility] Comment:Calculation based on the??Chronic Kidney Disease Epidemiology Collaboration (CKD-EPI) equation refit??without adjustment for race. BUN/Creatinine Ratio 15.2 LAB CHEMISTRY METHOD 05/31/2024 6:10 PM [facility] Calcium 8.8 8.5 - 10.5 mg/dL LAB CHEMISTRY METHOD 05/31/2024 6:10 PM [facility] Blood Venous blood specimen / Unknown Venipuncture / Unknown 05/31/2024 3:12 PM EST 05/31/2024 3:12 PM EST Taylor De León MD LAB BLOOD ORDERABLES [facility] [address] [place] [address], * Lipid panel with reflex to direct LDL (04/22/2024 9:03 AM EST) Cholesterol 177 0 - 200 mg/dL LAB CHEMISTRY METHOD 04/22/2024 10:56 AM EST [facility] Triglycerides 135 0 - 150 mg/dL LAB CHEMISTRY METHOD 04/22/2024 10:56 AM [facility] HDL 59 >=40 mg/dL LAB CHEMISTRY METHOD 04/22/2024 10:56 AM EST [facility] LDL Calculated 91 0 - 100 mg/dL LAB CHEMISTRY METHOD 04/22/2024 10:56 AM [facility] VLDL Cholesterol Sudarshan 27 mg/dL LAB CHEMISTRY METHOD 04/22/2024 10:56 AM [facility] Non HDL Chol. (LDL+VLDL) 118 <145 mg/dL LAB CHEMISTRY METHOD 04/22/2024 10:56 AM [facility] Chol/HDL Ratio 3.0 0.0 - 4.4 LAB CHEMISTRY METHOD 04/22/2024 10:56 AM [facility] Blood Venous blood specimen / Unknown Venipuncture / Unknown 04/22/2024 9:03 AM EST 04/22/2024 9:03 AM EST Samanta PERDOMO LAB BLOOD ORDERABLES [facility] [address] [place] [address], * (ABNORMAL) CBC auto differential (04/22/2024 9:03 AM EST) WBC 4.1(L) 4.8 - 10.8 K/mcL LAB HEMETOLOGY METHOD 04/22/2024 10:32 AM [facility] RBC 3.70(L) 3.80 - 4.80 M/[facility] LAB HEMETOLOGY METHOD 04/22/2024 10:32 AM [facility] Hemoglobin 11.5 11.5 - 16.0 g/dL LAB HEMETOLOGY METHOD 04/22/2024 10:32 AM [facility] Hematocrit 35.7 35.0 - 47.0 % LAB HEMETOLOGY METHOD 04/22/2024 10:32 AM [facility] MCV 96.5 79.0 - 98.0 FL LAB HEMETOLOGY METHOD 04/22/2024 10:32 AM [facility] MCH 31.1 27.0 - 32.0 pcg LAB HEMETOLOGY METHOD 04/22/2024 10:32 AM [facility] MCHC 32.2 32.0 - 37.0 g/dL LAB HEMETOLOGY METHOD 04/22/2024 10:32 AM [facility] RDW 12.5 11.0 - 15.0 % LAB HEMETOLOGY METHOD 04/22/2024 10:32 AM [facility] Platelets 280 130 - 400 K/mcL LAB HEMETOLOGY METHOD 04/22/2024 10:32 AM [facility] MPV 9.6 7.0 - 11.0 FL LAB HEMETOLOGY METHOD 04/22/2024 10:32 AM [facility] NRBC 0.0 <1.0 % LAB HEMETOLOGY METHOD 04/22/2024 10:32 AM [facility] NRBC Absolute 0.00 <0.10 K/mcL LAB HEMETOLOGY METHOD 04/22/2024 10:32 AM [facility] Neutrophils Relative 62.1 % LAB HEMETOLOGY METHOD 04/22/2024 10:32 AM [facility] Lymphocytes Relative 19.7 % LAB HEMETOLOGY METHOD 04/22/2024 10:32 AM [facility] Monocytes Relative 11.3 % LAB HEMETOLOGY METHOD 04/22/2024 10:32 AM [facility] Eosinophils Relative 4.9 % LAB HEMETOLOGY METHOD 04/22/2024 10:32 AM [facility] Basophils Relative 2.0 % LAB HEMETOLOGY METHOD 04/22/2024 10:32 AM [facility] Immature Granulocytes Relative 0.0 % LAB HEMETOLOGY METHOD 04/22/2024 10:32 AM [facility] Neutrophils Absolute 2.53 1.50 - 7.00 K/mcL LAB HEMETOLOGY METHOD 04/22/2024 10:32 AM EST [facility] Lymphocytes Absolute 0.80(L) 1.00 - 5.00 K/mcL LAB HEMETOLOGY METHOD 04/22/2024 10:32 AM EST [facility] Monocytes Absolute 0.46 0.20 - 1.00 K/mcL LAB HEMETOLOGY METHOD 04/22/2024 10:32 AM EST [facility] Eosinophils Absolute 0.20 0.00 - 0.50 K/[facility] LAB HEMETOLOGY METHOD 04/22/2024 10:32 AM EST [facility] Basophils Absolute 0.08 0.00 - 0.20 K/mcL LAB HEMETOLOGY METHOD 04/22/2024 10:32 AM [facility] Immature Granulocytes Absolute 0.00 0.00 - 0.03 K/[facility] LAB HEMETOLOGY METHOD 04/22/2024 10:32 AM EST [facility] Blood Venous blood specimen / Unknown Venipuncture / Unknown 04/22/2024 9:03 AM EST 04/22/2024 9:03 AM EST Samanta PERDOMO LAB BLOOD ORDERABLES [facility] [address] [place] [address], * Vitamin D 25 hydroxy (04/22/2024 9:03 AM EST) Vit D, 25-Hydroxy 68.5 30.0 - 80.0 ng/mL LAB CHEMISTRY METHOD 04/22/2024 11:02 AM EST [facility] Blood Venous blood specimen / Unknown Venipuncture / Unknown 04/22/2024 9:03 AM EST 04/22/2024 9:03 AM EST Samanta PERDOMO LAB BLOOD ORDERABLES Performing Organization Address City/[facility]/ZIP Co de Phone Number [facility] [address] [place] [address], * Vitamin B12 (04/22/2024 9:03 AM EST) [facility] Vitamin B-12 397 250 - 900 pcg/mL LAB CHEMISTRY METHOD 04/22/2024 11:18 AM [facility] Blood Venous blood specimen / Unknown Venipuncture / Unknown 04/22/2024 9:03 AM EST 04/22/2024 9:03 AM EST Samanta Cotto PA LAB BLOOD ORDERABLES Performing Organization Address [facility]/ZIP Co de Phone Number [facility] [address] [place] [address], * Hepatic function panel (04/22/2024 9:03 AM EST) [facility] Total Protein 6.5 6.0 - 8.0 g/dL LAB CHEMISTRY METHOD 04/22/2024 10:56 AM [facility] Albumin 3.8 3.2 - 5.0 g/dL LAB CHEMISTRY METHOD 04/22/2024 10:56 AM [facility] Total Bilirubin 0.5 0.0 - 1.4 mg/dL LAB CHEMISTRY METHOD 04/22/2024 10:56 AM [facility] Bilirubin, Direct 0.1 0.0 - 0.3 mg/dL LAB CHEMISTRY METHOD 04/22/2024 10:56 AM [facility] Bilirubin, Indirect 0.4 0.0 - 1.1 mg/dL LAB CHEMISTRY METHOD 04/22/2024 10:56 AM [facility] ALT (SGPT) 15 10 - 60 unit/L LAB CHEMISTRY METHOD 04/22/2024 10:56 AM [facility] AST (SGOT) 12 10 - 42 unit/L LAB CHEMISTRY METHOD 04/22/2024 10:56 AM EST [facility] Alkaline Phosphatase 88 42 - 121 unit/L LAB CHEMISTRY METHOD 04/22/2024 10:56 AM EST [facility] Blood Venous blood specimen / Unknown Venipuncture / Unknown 04/22/2024 9:03 AM EST 04/22/2024 9:03 AM EST Samanta PERDOMO LAB BLOOD ORDERABLES [facility] [address] [place] [address], from Last 3 Months Care Teams Research Consultant Relationship Specialty Start Date End Date Maria Isabel Verdin MD [address] [place] [address] PCP - General Internal Medicine 05/02/21
== END 2024-07-11 14:03 | disposition home or self-care (01) ==
LOC: HO.MAMMO 14:02
PROVIDERS: PCP Internal Medicine; Visit Provider Internal Medicine
DX: Z12.31 Encounter for screening mammogram for malignant neoplasm of breast (principal)
CPT/HCPCS: 77063; 77067

== ENCOUNTER → 2024-07-11 14:30 | Outpatient (BNV) | payer OTHER, SELFPAY | PROVIDERS: PCP Internal Medicine; Visit Provider Internal Medicine | DX: Z12.31 Encounter for screening mammogram for malignant neoplasm of breast (principal) | CPT/HCPCS: 77063; 77067 ==